=== PATIENT | female | born 1990 | race African-American/Black ===

== ENCOUNTER 2020-12-08 09:16 | Emergency (ER) | payer SELFPAY ==
[~2020-12-08] VITALS: Ht 154.9 cm; Wt 71.0 kg
[2020-12-08 09:19] VITALS: BP 106/62
[2020-12-08 09:42] LABS: CLARITY URINE CLOUDY (CLEAR); COLOR URINE YELLOW (YELLOW); KETONES URINE NEGATIVE (NEGATIVE); LEUKOCYTE ESTERASE URINE 3+ (NEGATIVE); NITRITE URINE POSITIVE (NEGATIVE); OCCULT BLOOD URINE 3+ (NEGATIVE); PH URINE 7.5 (4.5-8.0); PROTEIN URINE 2+ (NEGATIVE); SPECIFIC GRAVITY URINE 1.019 (1.005-1.030)
[2020-12-08] MEDS ORDERED: NITR-87 MT (10:46)
[2020-12-08] MEDS ORDERED: PHEN-815 MT (10:46)
== END 2020-12-08 10:59 | disposition home or self-care (01) ==
LOC: ER 09:16
DX: N39.0 Urinary tract infection, site not specified (principal); F12.10 Cannabis abuse, uncomplicated
CPT/HCPCS: 81003; 87077; 87186; 99283